=== PATIENT | female | born 1970 | race Caucasian/White ===

== ENCOUNTER 2020-07-21 12:30 | Outpatient (RCR) | payer BC, SELFPAY ==
--- NOTE | 2020-06-23 15:16 | PTOPEVAL ---
PHYSICAL THERAPY EVALUATION Thank you for referring Orly Milner to [facility].? Orly was evaluated with a dx of left shoulder adhesive capsulitis. The patient is scheduled to be seen for therapy? 2 x/week for 4 weeks. Please review, sign, date and return this plan of care SAMANTHA. I agree with and certify that the following plan of care is medically necessary. Referring Physician Date Attending Provider: Aftab Conrad MD *PT Outpatient Evaluation Start: 06/23/20 13:28 Freq: Status: Active Protocol: Document 06/23/20 13:20 [facility] (Rec: 06/23/20 14:31 [facility] [id number]) Evaluation Evaluation Information Problem Diagnosis left frozen shoulder Onset 2 years Cause fell Additional Evaluation Detail Patient fell 2 years ago and had no treatment then or since. The patient saw , received a cortisone shot and is taking tylenol arthritis. Subjective Information Patient has had shoulder pain Query Text:As Reported By Patient/ for 2 years but gotten worse. Family Patient has difficulty sleeping, reaching behind her back. The patient is right handed but affects workouts, regular self care and sleep. * patient workouts consist of cardio on treadmill and elliptical, ab workouts, bicycle, weights with arms, and a crossfit type routine. Patient has to modify and still has pain after workouts. Pain Assessment Timing of Pain Assessment Timing of Pain Assessment Assessment Pain Scale Pain Scale Used Numeric (1 - 10) Self Report Pain Assessment Left Shoulder(s) Reported Pain Level 3 Pain Description Burning,Dull Pain Frequency Chronic Other Pain Description sharp with movement Greatest Pain Intensity 8 Pain Level Goal 2 Pain Aggravating Factors Exercise/Activity,Lifting Additional Pain Comments DASH score: 66% Pain Score Pain Score 3: Self Report Interventions Used Interventions Used By Clinicians Education,Exercise Pain Relief Interventions Used By Inactivity/Rest,Medication, Patient Position Change Upper Extremity Range of Motion General Upper Extremity Range of Motion Gross Upper Extremity Range of Motion right shoulder active motion: Comments flexion 176, abduction 178,
--- NOTE | 2020-07-23 12:40 | PCPTNOTE ---
PHYSICAL THERAPY DISCHARGE SUMMARY Admitting Provider Attending :Provider: Aftab Conrad MD Patient:Orly Milenr Date of :1970 Patient has been seen for 8 visist for right shoulder adhesive capsulitis. The patient chooses to discontinue therapy at this time due to financial reasons, therefore she will be discharged at this time. Patient?s initial visit was on 06/23/2020 and she has progressed with motion and capsular mobility. The goals have been partially met and the patient plans to continue exercises on her own. Thank you for referring this patient to [facility]. Please review, sign, date and return this discharge summary SAMANTHA. I have been updated about the patient's current status and I agree with discharge from the above service at this time. Referring Physician Date
== END 2020-07-25 14:27 | disposition home or self-care (01) ==
LOC: ANHPT 12:30
PROVIDERS: PCP Physician Assistant; Visit Provider Orthopaedic Surgery
DX: M75.02 Adhesive capsulitis of left shoulder (principal); M75.82 Other shoulder lesions, left shoulder
CPT/HCPCS: 97110; 97140; 97161